=== PATIENT | female | born 1985 | race Caucasian/White ===

== ENCOUNTER 2016-10-23 05:20 | Day surgery (SDC) | payer OTHER ==
[2016-10-22 11:45] VITALS: BMI 33.5
--- NOTE | 2016-10-22 15:47 | PREOPHP ---
DATE OF ADMISSION: 10/23/2016 REASON FOR ADMISSION: She is to be admitted tomorrow 10/23/2016 for a laparoscopic bilateral tubal ligation. HISTORY OF PRESENT ILLNESS: This is a 30-year-old female, 4, para 4, who has requested ster ilization on the basis of multiparity. The alternative methods of control, the benefits, the risks, and possible complications as well as 1% failure rate of this procedure was discussed in grea t detail at the office. She was allowed to ask questions and all her questions were answered to her satisfaction, and she signed the appropriate surgical informed consent. PAST MEDICAL HISTORY: The patient denies any medical problems. She had a problem with chronic obes ity. She is currently weighing in 203 pounds. Denies cardiovascular disease, diabetes, renal disea se, liver disease, neurological disease, or thyroid problems. ALLERGIES: NO KNOWN ALLERGIES. MEDICATIONS: She takes no medications on a regular basis but control pills. OBSTETRICAL HISTORY: The patient had 4 pregnancies and 4 normal vaginal deliveries. FAMILY HISTORY: Noncontributory. REVIEW OF SYSTEMS: A 12-point review of systems is noncontributory. PHYSICAL EXAMINATION: GENERAL: Well-developed, obese, in no distress with a height of 5 feet 4 inches and a weight of 203 pounds. VITAL SIGNS: Showed temperature to be 98, blood pressure is 131/82, respirations 16 per minute. Pu lse is 77 per minute, regular. HEENT: Within normal limits. Pupils are PERRLA. NECK: Supple. Thyroid is nonpalpable. There is no lymphadenopathy. CHEST: Showed lungs to be clear to percussion and auscultation. HEART: Revealed normal sinus rhythm without a murmur. ABDOMEN: Soft, obese, nontender. PELVIC: Normal external genitalia. Cervix is normal without lesions. Bimanual exam: The uterus s mall. There are no adnexal masses. EXTREMITIES: Within normal limits. NEUROLOGIC: Also normal. IMPRESSION: 1. Multiparity. 2. Obesity. 3. The patient desires sterilization. Dictated By: TERESE GARCIA/BLAIR Conf#: [id number] DID#: [id number]
[2016-10-23] VITALS (11 sets, daily range): BP systolic 114–133; BP diastolic 63–78; PULSE 72–96; RESP 12–72; Ht 162.6 cm; Wt 90.5 kg
[~2016-10-23] VITALS: Ht 162.6 cm; Wt 90.5 kg
[~2016-10-23 05:20] MED LIST: BIRTH CONTROL PILLS
[2016-10-23] MEDS ORDERED: LACTATED RINGER'S 1,000 ML IV* SCH (06:00)
[2016-10-23] MEDS ORDERED: SEVOFLURANE 15 MIN ONE (07:00)
[2016-10-23] MEDS ORDERED: BUPIVACAINE 0.5%/EPI (SDV) 30 ML INJ ONE (07:14)
[2016-10-23] MEDS ORDERED: SUCCINYLCHOLINE CHLORIDE 100 MG/5 ML SYG IV ONE (07:28)
[2016-10-23] MEDS ORDERED: LIDOCAINE 2% (SDV) 5 ML INJ ONE (07:28)
[2016-10-23] MEDS ORDERED: GLYCOPYRROLATE 0.4 MG INJ ONE ×3 (07:28→08:04)
[2016-10-23] MEDS ORDERED: NEOSTIGMINE 3 MG/3 ML SYRINGE ONE ×2 (07:29→08:04)
[2016-10-23] MEDS ORDERED: ROCURONIUM 50 MG INJ ONE (07:29)
[2016-10-23] MEDS ORDERED: MEPERIDINE 100 MG INJ ONE (07:29)
[2016-10-23] MEDS ORDERED: PROPOFOL 20 ML ONE (07:29)
[2016-10-23] MEDS ORDERED: METOCLOPRAMIDE 10 MG INJ ONE (07:46)
[2016-10-23] MEDS ORDERED: ONDANSETRON 4 MG INJ ONE (07:46)
[2016-10-23] MEDS ORDERED: LABETALOL HCL 20MG INJ IV PRN (08:00)
[2016-10-23] MEDS ORDERED: ONDANSETRON 4 MG INJ IV PRN ×2 (08:00→08:30)
[2016-10-23] MEDS ORDERED: DIPHENHYDRAMINE 50 MG INJ IV PRN (08:00)
[2016-10-23] MEDS ORDERED: morphine (1 MG/ML) 10ML SYRINGE IV PRN ×2 (08:00)
[2016-10-23] MEDS ORDERED: MEPERIDINE 25 MG INJ IV PRN (08:00)
[2016-10-23] MEDS ORDERED: hydrALAzine 20 MG INJ IV PRN (08:00)
[2016-10-23] MEDS ORDERED: METOCLOPRAMIDE 10 MG INJ IV PRN (08:00)
[2016-10-23] MEDS ORDERED: HYDROmorphONE (0.2 MG/ML) 10ML SYG IV PRN ×2 (08:00)
[2016-10-23] MEDS ORDERED: FENTAnyl 50 MCG/ML VIAL IV PRN ×2 (08:00)
[2016-10-23] MEDS ORDERED: EPHEDrine SULFATE 50 MG/5 ML SYG IV PRN (08:00)
[2016-10-23] MEDS ORDERED: MIDAZOLAM 1 MG/ML 2 ML INJ IV PRN (08:00)
[2016-10-23] MEDS ORDERED: CEFAZOLIN 1 GM INJ ONE (08:04)
[2016-10-23] MEDS ORDERED: morphine 2 MG INJ IV PRN (08:30)
[2016-10-23] MEDS ORDERED: OXYCODONE/ACETAMINOPHEN (5/325) TAB PO PRN ×2 (08:30)
[2016-10-23] MEDS ORDERED: ACETAMINOPHEN 325 MG TAB PO PRN (08:30)
[2016-10-23] MEDS ORDERED: IBUPROFEN 600 MG TAB PO PRN (08:30)
[2016-10-23] MEDS ORDERED: LACTATED RINGER'S 1,000 ML IV SCH (08:30)
--- NOTE | 2016-10-23 08:34 | PD.PPDC ---
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
--- NOTE | 2016-10-23 10:20 | OPR ---
DATE OF OPERATION: 10/23/2016 PREOPERATIVE DIAGNOSES: 1. Multiparity. 2. Obesity. 3. Patient desires sterilization. POSTOPERATIVE DIAGNOSES: 1. Multiparity. 2. Obesity. 3. Patient desires sterilization. OPERATION PERFORMED: Laparoscopic bilateral tubal ligation. SURGEON: Terese Ordonez MD. ANESTHESIA: General. ANESTHESIOLOGIST: Dr. Arias. COMPLICATIONS: None. SPECIMENS: None. ESTIMATED BLOOD LOSS: None. PROCEDURE AND FINDINGS: With the patient under general anesthesia, laid on the table in the dorsal lithotomy position. Her abdomen was prepped with Betadine and also the vagina and perineum. After 3 minutes, she was draped in the usual sterile fashion for this procedure. She had been catheterize d emptied the bladder. Small 5 mm incision was done at the level of the umbilicus. Through this ne edle and while we were tenting up the anterior abdominal wall, the Veress needle was inserted. Once the tip of the needle was ascertained to be intraperitoneal by the hanging drop saline technique, i t was then connected to the CO2 insufflator. Good pneumoperitoneum was obtained. The needle was th en removed and a 5 mm trocar was passed in while we were tenting up the anterior abdominal wall. Th rough this trocar the 5 mm laparoscope with the Endocamera was inserted. The patient was placed in Trendelenburg position. The pelvic organs were found to be normal. A second port was installed in the hypogastric area under direct vision with another 5 mm trocar without any incidents. Through th is second port, a Kleppinger clamp was inserted with the gyrus device at 35 mitchell of current. The r ight tube was then found, picked up in its mid portion and burned through and through for 1.5 cm. T he same was repeated on the contralateral side. There were no bleeders or complications. Pictures were taken for documentation. All the instruments were then removed from the patient's abdomen as w ell as much of CO2 as possible. The incisions were infiltrated with 0.5% Marcaine with epinephrine with a total of 20 mL. They were then dressed with Band-Aids. The patient withstood the procedure well and was taken to recovery room with all vital signs stable. EBL was negligible. Needle, spong e and instrument count at the end of the procedure was correct twice. Dictated By: TERESE GARCIA/BLAIR Conf#: [id number] DID#: [id number]
== END 2016-10-23 10:23 | disposition home or self-care (01) ==
LOC: SDS 05:20
PROVIDERS: ATTEND Specialist
DX: Z30.2 Encounter for sterilization (principal)
CPT/HCPCS: 58670; J0330; J0690; J2175; J2405; J2710; J2765; Z7512; Z7610